=== PATIENT | female | born 1980 | race African-American/Black ===

== ENCOUNTER 2017-03-08 08:07 | Emergency (ER) | payer MEDICAID, OTHER ==
[~2017-03-08] VITALS: Ht 172.7 cm; Wt 112.0 kg
[2017-03-08] MEDS ORDERED: [UNRECOGNIZED DRUG - REMARK] (08:12)
[2017-03-08 08:51] LABS: BASOPHILS % 0.3 % (0.0-2.0); EOSINOPHILS % 2.4 % (0.0-5.0); HEMATOCRIT. 37.7 % (36.0-48.0); HEMOGLOBIN. 12.7 g/dL (12.0-16.0); LYMPHOCYTES % 38.3 % (20.0-50.0); MEAN CORPUSCULAR HEMOGLOBIN 31.4 pg (28.0-32.0); MEAN PLATELET VOLUME 9.7 fl (7.4-10.4); MONOCYTES % 5.4 % (2.0-8.0); NEUTROPHILS % 53.6 % (40.0-76.0); PLATELET 221 x1000/uL (130-400); RED BLOOD CELL COUNT 4.06 mill/uL (4.2-5.4); RED CELL DISTRIBUTION WIDTH 13.6 % (11.6-14.6)
[2017-03-08 08:58] LABS: CHLORIDE 108 mEq/L (98-107)
[2017-03-08 08:59] LABS: PROTHROMBIN TIME 10.7 sec (9.4-11.6)
[2017-03-08 09:05] LABS: CARBON DIOXIDE 23 mEq/L (21-32)
[2017-03-08 09:13] LABS: HCG SCREEN NEGATIVE
[2017-03-08] MEDS ORDERED: KETOROLAC 30MG/ML VIAL IV ONE (09:15)
[2017-03-08 10:41] VITALS: BP 144/92
== END 2017-03-08 10:44 | disposition home or self-care (01) ==
LOC: ER 08:47
DX: R07.89 Other chest pain (principal); R06.02 Shortness of breath; R05 Cough; F17.200 Nicotine dependence, unspecified, uncomplicated
CPT/HCPCS: 36415; 71010; 80053; 84703; 85025; 85379; 85610; 93005; 96374; 99285; J1885; Z7610